=== PATIENT | female | born 1985 | race Caucasian/White ===

== ENCOUNTER 2018-05-02 15:29 | Emergency (ER) | payer OTHER ==
[2018-05-02] MEDS ORDERED: LET GEL TOPICAL 1 EA SYR TP ONE (15:36)
[2018-05-02] MEDS ORDERED: IBUPROFEN 600 MG TAB PO ONE ×2 (15:36→15:43)
--- NOTE | 2018-05-02 18:08 | EDPHY ---
H & P Stated Complaint: left 2nd digit laceration vs bread slicer this afternoon Time Seen by Provider: 05/02/18 16:07 HPI/ROS: CHIEF COMPLAINT: Finger laceration HISTORY OF PRESENT ILLNESS: This is a 33-year-old female who presents with a left index finger laceration. This occurred while using a bread cutter at work. Tetanus is up-to-date. She has been able to control the bleeding with pressure. She is not aware of numbness or weakness involving this digit. She is right-hand dominant. REVIEW OF SYSTEMS: A ten system review of systems was performed and is negative with the exception of the items mentioned in the HPI. 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 She does not use tobacco products. General Appearance: Alert. Vital signs reviewed. Focused examination performed. Respiratory: Lungs are clear to auscultation; no wheezes, rales, or rhonchi. Cardiovascular: Regular rate and rhythm; no murmur, rub, or gallop. Skin: Warm and dry, no rashes on exposed skin, normal color. Back: Nontender to palpation over the thoracolumbar spine. No CVAT. Extremities: There is a 1.5 cm laceration on the pad of her left index finger. It is distal to the joint. Bleeding is controlled. She has full flexion extension of the MCP PIP and DI P of the left index finger. Sensation is intact to light touch over the left index finger. No other injuries. Pulses: 2+ radial pulse on the left. Neurological: Alert and oriented. Moving all four extremities easily and equally. Psychiatric: Normal affect. - Personal History LMP (Females 10-55): IUD In Place Current Tetanus Diphtheria and Acellular Pertussis (TDAP): Yes - Medical/Surgical History Hx Asthma: No Hx Chronic Respiratory Disease: No Hx Diabetes: No Hx Cardiac Disease: No Hx Renal Disease: No Hx Cirrhosis: No Hx Alcoholism: No Hx HIV/AIDS: No Hx Splenectomy or Spleen Trauma: No Other PMH: denies - Social History Smoking Status: Current every day smoker Constitutional: Initial Vital Signs Temperature (C) 36.5 C 05/02/18 15:34 Heart Rate 88 05/02/18 15:34 Respiratory Rate 16 05/02/18 15:34 Blood Pressure 128/84 H 12/09/18 15:34 O2 Sat (%) 98 05/02/18 15:34 O2 Delivery Mode Room Air Allergies/Adverse Reactions: No Known Allergies Allergy (Unverified 05/02/18 15:45) Home Medications: Medication Instructions Recorded NK [No Known Home Meds] 05/02/18 Medical Decision Making Procedures: Procedure: Laceration repair. Verbal consent was obtained from the patient. The lymph I have cm laceration on the left index finger was anesthetized in the usual fashion with a digital block. The wound was irrigated, draped and explored. There were no deep structures involved. No tendon injury was identified. The wound was repaired with 4 -0 nylon, 6 interrupted sutures. The wound repair was single layer, simple. The procedure was performed by myself. ED Course/Re-evaluation: Patient tolerated laceration repair. Her tetanus is current. Wound care instructions were provided. She will return for suture removal. I have not found evidence of tendon or nerve injury. I do not suspect bony injury. There is no injury to the nail or nail bed. She understands that there will be a scar. - Data Points Medications Given: Discontinued Medications Ibuprofen (Motrin) 600 mg PO EDNOW ONE Stop: 05/02/18 15:44 Last Admin: 05/02/18 15:44 Dose: 600 mg Departure - Departure Disposition: Home, Routine, Self-Care Clinical Impression: Laceration Condition: Good Instructions: Care For Your Stitches (ED), Finger Laceration (ED) Additional Instructions: There are 6 stitches. They need to be removed in 7-10 days. Leave the dressing in place for 24 hr. After that you can remove it, gently wash your hand, including the stitches, and then apply a light weight bandage. Do not let the stitches remain wet. Watch for signs of infection. If you have any concerns about the stitches please return let us re-evaluate them. Referrals: Roddy Fong MD [Medical Doctor] - As per Instructions
[2018-05-02 18:24] VITALS: BP 124/80
== END 2018-05-02 18:21 | disposition home or self-care (01) ==
LOC: CED 15:29
PROC: 0HQGXZZ Repair Left Hand Skin, External Approach (ICD-10-PCS; principal; 2018-05-02)
DX: S61.211A Laceration without foreign body of left index finger without damage to nail, initial encounter (principal); W26.8XXA Contact with other sharp object(s), not elsewhere classified, initial encounter; Y92.512 Supermarket, store or market as the place of occurrence of the external cause; Y93.G1 Activity, food preparation and clean up; Y99.0 Civilian activity done for income or pay